=== PATIENT | female | born 1955 | race Caucasian/White ===

== ENCOUNTER 2018-06-28 08:02 | Outpatient (CLI) | payer BC ==
--- NOTE | 2018-06-28 09:20 | BD ---
BONE DENSITOMETRY USING DEXA: Date: 06/28/18 HISTORY: Postmenopausal screening for osteoporosis. FINDINGS: Lumbar Spine: BMD (g/cm2) L1 0.934 T-Score: -0.5 Z-Score: 0.9 L2 1.003 T-Score: -0.2 Z-Score: 1.3 L3 0.934 T-Score: -1.4 Z-Score: 0.3 L4 1.041 T-Score: -0.2 Z-Score: 1.5 L1-L4 0.980 T-Score: -0.6 Z-Score: 1.0 Femoral Neck: 0.699 T-Score: -1.3 Z-Score: 0.0 Total Femur: 1.009 T-Score: 0.6 Z-Score: 1.6 The 10 year risk for a major osteoporotic fracture is 12% and for a hip fracture is 1.1%. IMPRESSION: Osteopenia. POS: OFF
== END 2018-06-28 08:03 | disposition home or self-care (01) ==
LOC: BICMAMMO 08:02
PROVIDERS: ATTEND Internal Medicine
DX: Z12.31 Encounter for screening mammogram for malignant neoplasm of breast (principal); M85.89 Other specified disorders of bone density and structure, multiple sites
CPT/HCPCS: 77063; 77067; 77080